=== PATIENT | male | born 1975 | race African-American/Black ===

== ENCOUNTER 2018-04-20 12:42 | Emergency (ER) | payer MEDICAID ==
--- NOTE | 2018-04-20 13:08 | EDM.PDOC ---
ED HPI GENERAL MEDICAL PROBLEM - General Chief Complaint: Chest Pain Stated Complaint: FACE AND CHEST PAIN, LEFT SIDE Time Seen by Provider: 04/20/18 13:08 Source of Information: Reports: Patient History Limitations: Reports: No Limitations - History of Present Illness INITIAL COMMENTS - FREE TEXT/NARRATIVE: Patient is here for evaluation of chest pain 2 days. He states that his left middle chest feels sharp and squeezing. Radiates his left neck up into his left jaw. He states that the pain started 2 days ago, got significantly worse around 11 AM this morning. Denies any diaphoresis or dyspnea. Does not have a feeling of impending doom. Patient has no cardiac history. He has no chronic medical conditions, he is not on any medications on a daily basis. Patient admits to drinking significant amount of caffeine but does not use illicit drugs. He denies any tobacco use. Patient is a full code. Left Chest Pain Score (Numeric/FACES): 8 - Related Data Allergies Allergy/AdvReac Type Severity Reaction Status Date / Time No Known Allergies Allergy Verified 04/20/18 13:16 Home Meds: Home Meds . [No Known Home Meds] 04/20/18 [History] ED ROS GENERAL - Review of Systems Review Of Systems: See Below Constitutional: Reports: Weakness, Fatigue. Denies: Fever, Chills, Malaise, Diaphoresis HEENT: Reports: No Symptoms Respiratory: Reports: No Symptoms Cardiovascular: Reports: Chest Pain. Denies: Blood Pressure Problem, Dyspnea on Exertion, Edema, Lightheadedness Endocrine: Reports: Fatigue GI/Abdominal: Reports: No Symptoms : Reports: No Symptoms Musculoskeletal: Reports: No Symptoms Skin: Reports: No Symptoms Neurological: Reports: No Symptoms Psychiatric: Reports: No Symptoms ED EXAM, GENERAL - Physical Exam Exam: See Below Exam Limited By: No Limitations General Appearance: Alert, WD/WN, Mild Distress Eye Exam: Bilateral Eye: PERRL Ears: Normal External Exam, Normal Canal, Normal TMs Head: Atraumatic, Normocephalic Neck: Normal Inspection, Supple, Non-Tender Respiratory/Chest: No Respiratory Distress, Lungs Clear, Normal Breath Sounds Cardiovascular: Regular Rate, Rhythm, No Edema, No Murmur GI/Abdominal: Normal Bowel Sounds, Soft, Non-Tender Extremities: No Pedal Edema Neurological: Alert, Oriented Psychiatric: Normal Affect, Normal Mood Skin Exam: Warm, Dry, Intact EKG INTERPRETATION EKG Date: 04/20/18 Time: 13:03 Rhythm: NSR Rate (Beats/Min): 77 Comparison: NA - No Prior EKG Course - Vital Signs Last Recorded V/S: Last Vital Signs Temp 97.4 F 04/20/18 13:10 Pulse 74 04/20/18 14:38 Resp 16 04/20/18 13:10 BP 147/109 H 04/20/18 14:38 Pulse Ox 97 04/20/18 13:10 - Orders/Labs/Meds Orders: Active Orders 24 hr Category Date Time Status INR,PT,PROTHROMBIN TIME [COAG] Stat Lab 04/20/18 14:51 Ordered PTT,PARTIAL THROMBOPLSTIN TIME [COAG] Stat Lab 04/20/18 14:51 Ordered Heparin Sodium/D5W [Heparin 25,000 Units in D5W 500 ML] Med 04/20/18 15:00 Active 25,000 units in 500 ml IV TITRATE Medication Orders Heparin Sodium/Dextrose (Heparin 25,000 Units In D5w 500 Ml) 25,000 units in 500 mls @ 31.57 mls/hr IV TITRATE JARET; Protocol Labs: Laboratory Tests 04/20/18 04/20/18 Range/Units 13:05 13:05 WBC 4.69 (4.23-9.07) K/mm3 RBC 4.32 L (4.63-6.08) M/mm3 Hgb 13.6 L (13.7-17.5) gm/L Hct 41.2 (40.1-51.0) % MCV 95.4 H (79.0-92.2) fl MCH 31.5 (25.7-32.2) pg MCHC 33.0 (32.2-35.5) g/dl RDW Std Deviation 45.1 H (35.1-43.9) fL Plt Count 241 (163-337) K/mm3 MPV 9.4 (9.4-12.3) fl Neutrophils % (Manual) 50 (40-60) % Band Neutrophils % 0 (0-10) % Lymphocytes % (Manual) 32 (20-40) % Atypical Lymphs % 0 % Monocytes % (Manual) 8 (2-10) % Eosinophils % (Manual) 9 H (0.8-7.0) % Basophils % (Manual) 1 (0.2-1.2) Platelet Estimate Adequate RBC Morph Comment Normal Sodium 141 (136-145) mEq/L Potassium 4.4 (3.5-5.1) mEq/L Chloride 109 H (98-107) mEq/L Carbon Dioxide 24 (21-32) mEq/L Anion Gap 12.4 (5-15) BUN 18 (7-18) mg/dL Creatinine 1.0 (0.7-1.3) mg/dL Est Cr Clr Drug Dosing 104.54 mL/min Estimated GFR (MDRD) > 60 (>60) mL/min BUN/Creatinine Ratio 18.0 (14-18) Glucose 111 H (74-106) mg/dL Calcium 8.5 (8.5-10.1) mg/dL Total Bilirubin 0.2 (0.2-1.0) mg/dL AST 43 H (15-37) U/L ALT 80 H (16-63) U/L Alkaline Phosphatase 50 (46-116) U/L Troponin I 0.118 H* (0.00-0.056) ng/mL C-Reactive Protein < 0.2 (<1.0) mg/dL Total Protein 6.9 (6.4-8.2) g/dl Albumin 3.2 L (3.4-5.0) g/dl Globulin 3.7 gm/dL Albumin/Globulin Ratio 0.9 L (1-2) TSH 3rd Generation 1.111 (0.358-3.74) uIU/mL Meds: Medications Generic Name Dose Route Start Last Admin Trade Name Freq PRN Reason Stop Dose Admin Heparin Sodium/Dextrose 25,000 units in 500 mls @ 31.57 mls/hr 04/20/18 15:00 Heparin 25,000 Units In D5w 500 Ml IV TITRATE JARET Protocol 12 UNITS/KG/HR Discontinued Medications Generic Name Dose Route Start Last Admin Trade Name Freq PRN Reason Stop Dose Admin Aspirin 324 mg 04/20/18 14:17 04/20/18 14:27 Aspirin PO 04/20/18 14:18 324 mg ONETIME ONE Administration Hydromorphone HCl 0.5 mg 04/20/18 14:18 04/20/18 14:27 Dilaudid IVPUSH 04/20/18 14:19 0.5 mg ONETIME ONE Administration Sodium Chloride 1,000 mls @ 999 mls/hr 04/20/18 13:19 04/20/18 13:33 Normal Saline IV 04/20/18 14:19 999 mls/hr ONETIME ONE Administration Ketorolac Tromethamine 30 mg 04/20/18 13:19 04/20/18 13:33 Toradol IVPUSH 04/20/18 13:20 30 mg ONETIME ONE Administration Metoprolol Succinate 50 mg 04/20/18 14:27 04/20/18 14:38 Toprol Xl PO 04/20/18 14:28 50 mg ONETIME ONE Administration - Re-Assessments/Exams Free Text/Narrative Re-Assessment/Exam: CBC unremarkable, CRP <0.2. Troponin elevated at 0.118, EKG NSR without ST elevation CXR normal. Patient was given 0.5 mg Dilaudid for pain and 324 milligrams aspirin. 50 mg Toprol by mouth. Will start heparin drip. Discussed with hospitalist Dr. Karine Burton [facility] in [place] who agrees to accept care for patient Will transfer via ambulance. Patient is a full code. 04/20/18 14:23 04/20/18 14:26 04/20/18 14:52 Departure - Departure Time of Disposition: 14:55 Disposition: Admitted As Inpatient 65 Reason for Transfer *Q: Primary PCI Indicated Condition: Fair Clinical Impression: NSTEMI (non-ST elevated myocardial infarction) Referrals: PCP,None [Primary Care Provider] - Forms: ED Department Discharge - My Orders Last 24 Hours: My Active Orders 04/20/18 14:51 INR,PT,PROTHROMBIN TIME [COAG] Stat PTT,PARTIAL THROMBOPLSTIN TIME [COAG] Stat 04/20/18 15:00 Heparin Sodium/D5W [Heparin 25,000 Units in D5W 500 ML] 25,000 units in 500 ml IV TITRATE - Assessment/Plan Last 24 Hours: My Active Orders 04/20/18 14:51 INR,PT,PROTHROMBIN TIME [COAG] Stat PTT,PARTIAL THROMBOPLSTIN TIME [COAG] Stat 04/20/18 15:00 Heparin Sodium/D5W [Heparin 25,000 Units in D5W 500 ML] 25,000 units in 500 ml IV TITRATE
[2018-04-20] MEDS ORDERED: Sodium Chloride 0.9% 1,000 ML IV ONE ×2 (13:19→14:54)
[2018-04-20] MEDS ORDERED: Ketorolac 30 MG/ML SDV IVPUSH ONE (13:19)
[2018-04-20] MEDS ORDERED: Aspirin 81 MG Tab.Chew PO ONE (14:17)
[2018-04-20] MEDS ORDERED: HYDROmorphone 0.5 MG/0.5 ML SYRINGE IVPUSH ONE (14:18)
--- NOTE | 2018-04-20 14:25 | CR ---
Chest: Two views of the chest were obtained. Comparison: No previous study. Heart size and mediastinum are normal. Lungs are clear. Bony structures are unremarkable for the patient's age. Impression: 1. Nothing acute is seen on two-view chest x-ray. Diagnostic code #1
[2018-04-20] MEDS ORDERED: Metoprolol Succinate 50 MG Tab.ER PO ONE (14:27)
[2018-04-20] MEDS ORDERED: Heparin Sodium/D5W 25,000 UNITS/500 ML BAG IV SCH (15:00)
== END 2018-04-20 15:10 ==
LOC: JD.ED 12:42
DX: I21.4 Non-ST elevation (NSTEMI) myocardial infarction (principal)
CPT/HCPCS: 36415; 71046; 80053; 84443; 84484; 85007; 85027; 85610; 85730; 86140; 96361; 96374; 96375; 99285; A9270; J1170; J1644; J1885; J7040